=== PATIENT | female | born 1965 | race Caucasian/White ===

== ENCOUNTER 2021-12-19 18:33 | Emergency (ER) | payer OTHER ==
[~2021-12-19] VITALS: Ht 157.5 cm; Wt 62.1 kg
[2021-12-19 19:07] VITALS: BP 125/89
--- NOTE | 2021-12-19 19:11 | NUR ---
PT SENT TO LOBBY
--- NOTE | 2021-12-19 20:14 | NUR ---
55/F BIB SELF WITH C/O HEAD PAIN. STATES ON TUESDAY NIGHT SHE FELL FACE FORWARD INTO HER NIGHT STAND DUE TO "LACK OF SLEEP" STATES SHE HAD LOC FOR UNKNOWN AMOUNT OF TIME. BRUISING AND LACERATION NOTED NOT TO LEFT EYE AND EYBROW. REPORTS DIZZINESS AND BLURRED VISION. MEDHX: HYPOTHYROIDISM ALLERGIES: DENIES
[2021-12-19 20:43] LABS: BASOPHILS # (AUTO) 0.1 K/uL (0.00-0.22); BASOPHILS % (AUTO) 0.9 % (0.0-2.0); EOSINOPHILS # (AUTO) 0.2 K/uL (0-0.4); HEMATOCRIT 43.1 % (36-48); HEMOGLOBIN 15.1 g/dL (12.0-16.0); LYMPHOCYTES % (AUTO) 25.2 % (20.5-51.1); MEAN CORPUSCULAR HEMOGLOBIN 33 pg (27-31); MEAN CORPUSCULAR HGB CONC 35 g/dL (33-37); MEAN CORPUSCULAR VOLUME 92.8 fL (80-94); MONOCYTES # (AUTO) 0.6 K/uL (0.8-1.0); MONOCYTES % (AUTO) 7.8 % (1.7-9.3); NEUTROPHILS # (AUTO) 5.1 K/uL (1.8-7.7); NEUTROPHILS % (AUTO) 64.1 % (42.2-75.2); PLATELET COUNT (AUTO) 319 K/uL (140-450); RED BLOOD CELL COUNT(AUTO) 4.65 MIL/uL (4.20-5.40); RED CELL DISTRIBUTION WIDTH 13.4 % (11.6-13.7)
[2021-12-19 21:08] LABS: ALBUMIN 3.9 g/dL (3.4-5.0); ANION GAP 13.4 (8-16); CARBON DIOXIDE 29.6 mmol/L (21-32); CREATININE 0.8 mg/dL (0.6-1.3); TOTAL BILIRUBIN 0.4 mg/dL (0.0-1.0)
[2021-12-19] MEDS ORDERED: ZOLP5TAB1 PO (22:38)
[2021-12-19 22:49] VITALS: BP 125/89
--- NOTE | 2021-12-19 22:49 | NUR ---
Patient discharged with v/s stable. Written and verbal after care instructions given and explained. Patient alert, oriented and verbalized understanding of instructions. Ambulatory with steady gait. All questions addressed prior to discharge. ID band removed. Patient advised to follow up with PMD. Rx of FRANC given. Patient educated on indication of medication including possible reaction and side effects. Opportunity to ask questions provided and answered.
[2021-12-21] MEDS ORDERED: ZOLP5TAB1 PO (16:39)
== END 2021-12-19 22:49 | disposition home or self-care (01) ==
LOC: MED 18:33
DX: S00.212A Abrasion of left eyelid and periocular area, initial encounter (principal); J45.909 Unspecified asthma, uncomplicated; E05.90 Thyrotoxicosis, unspecified without thyrotoxic crisis or storm; W19.XXXA Unspecified fall, initial encounter; Y93.89 Activity, other specified; Y92.89 Other specified places as the place of occurrence of the external cause; Y99.8 Other external cause status
CPT/HCPCS: 36415; 70450; 70486; 71045; 72125; 80053; 84484; 85025; 90471; 90715; 93005; 99285

== ENCOUNTER 2022-04-11 14:42 | Emergency (ER) | payer OTHER ==
[~2022-04-11] VITALS: Ht 154.9 cm; Wt 63.0 kg
[~2022-04-11 14:42] MED LIST: ZOLP5TAB1 PO
[2022-04-11 14:48] VITALS: BP 129/79
[2022-04-11] MEDS ORDERED: IBUP-2213 PO (15:13)
[2022-04-11] MEDS ORDERED: SULF-59 PO (15:13)
[2022-04-11] MEDS ORDERED: CEPH-588 PO (15:13)
[2022-04-11] MEDS ORDERED: cefTRIAXone 1,000 MG VIAL ONE (15:16)
[2022-04-11] MEDS ORDERED: LIDOCAINE MPF 1% 5 ML ONE (15:17)
[2022-04-11] MEDS: IBUPROFEN 600 MG TAB PO ONE (15:27)
[2022-04-11] MEDS: cefTRIAXone 1,000 MG in LIDOCAINE MPF 1% 2.1 ML IM ONE (15:27)
--- NOTE | 2022-04-11 15:48 | NUR ---
Patient discharged with v/s stable. Written and verbal after care instructions given and explained. Patient verbalized understanding. Ambulatory with steady gait. All questions addressed prior to discharge. Advised to follow up with PMD.
== END 2022-04-11 15:48 | disposition home or self-care (01) ==
LOC: MED 14:42
DX: L03.111 Cellulitis of right axilla (principal); J45.909 Unspecified asthma, uncomplicated; E03.9 Hypothyroidism, unspecified
CPT/HCPCS: 96372; 99283; J0696; J2001